=== PATIENT | female | born 1960 | race Caucasian/White ===

== ENCOUNTER 2020-02-13 20:35 | Emergency (ER) | payer OTHER ==
[~2020-02-13] VITALS: Ht 284.5 cm; Wt 70.3 kg
[2020-02-14] MEDS ORDERED: ORPHENADRINE C100 MG PO (00:15)
[2020-02-14] MEDS ORDERED: ACETAMINOPHEN650 M2 PO (00:15)
[2020-02-14] MEDS ORDERED: PERCOCET 5-3251 EACH PO (00:15)
== END 2020-02-14 | disposition home or self-care (01) ==
LOC: ER 20:35
DX: S30.0XXA Contusion of lower back and pelvis, initial encounter (principal); S40.022A Contusion of left upper arm, initial encounter; S50.02XA Contusion of left elbow, initial encounter; M54.2 Cervicalgia; R51.9 Headache, unspecified; M54.6 Pain in thoracic spine; V03.19XA Pedestrian with other conveyance injured in collision with car, pick-up truck or van in traffic accident, initial encounter; Y93.89 Activity, other specified; Y92.488 Other paved roadways as the place of occurrence of the external cause; Y99.8 Other external cause status